=== PATIENT | female | born 1960 | race African-American/Black ===

== ENCOUNTER 2017-11-07 08:28 | Emergency (ER) | payer OTHER ==
[~2017-11-07] VITALS: Ht 162.6 cm; Wt 50.4 kg
[~2017-11-07 08:28] MED LIST: FLEXERIL10 MG PO; MOTRIN800 MG PO; NO HOME MEDS; PERCOCET 5/31 TABLET PO; PREDNISONE10 MG PO; PROTONIX40 MG PO; ULTRAM50 MG PO; VALIUM5 MG PO
[2017-11-07 09:19] LABS: HEMATOCRIT 38.9 % (36.0-46.0); HEMOGLOBIN 12.6 G/DL (11.9-15.5); MCH 29.3 PG (29.0-34.0); MCHC 32.4 G/DL (30.0-36.0); MCV 90.5 FL (83-99); PLATELET COUNT 219 K/uL (156-360); RBC DIS.WIDTH-CV 14.3 % (11.8-14.6); RBC DIS.WIDTH-SD 47.4 % (39-53); WHITE BLOOD COUNT 12.4 K/uL (4.1-10.2)
[2017-11-07 09:30] LABS: ALBUMIN 4.1 g/dL (3.2-4.8); CHLORIDE 109 mEq/L (99-109); POTASSIUM 3.8 mEq/L (3.7-5.4); SODIUM 140 mEq/L (136-147)
[2017-11-07 09:32] LABS: GLUCOSE 100 mg/dL (70-99); TOTAL PROTEIN 7.3 g/dL (6.4-8.3)
[2017-11-07 09:34] LABS: TOTAL BILIRUBIN 0.6 mg/dL (0.0-1.0)
[2017-11-07 09:36] LABS: ALKALINE PHOSPHATASE 82 IU/L (3-129); GFR ESTIMATE (CALCULATED) > 59 mL/min/
[2017-11-07 09:37] LABS: UREA NITROGEN (BUN) 16 mg/dL (9-23)
[2017-11-07 09:38] LABS: AST (GOT) 19 IU/L (2-34)
[2017-11-07 09:39] LABS: ALT (GPT) 15 IU/L (3-49); LIPASE 31 U/L (1.0-51.0)
[2017-11-07 10:56] LABS: APPEARANCE CLOUDY ((CLEAR)); BILIRUBIN NEGATIVE; BLOOD MODERATE; COLOR YELLOW ((YELLOW)); GLUCOSE (STRIP) NEGATIVE; KETONES NEGATIVE; LEUKOCYTES LARGE; NITRITE POSITIVE; PROTEIN (STRIP) 30; SPECIFIC GRAVITY 1.045 (1.000-1.030); UROBILINOGEN 0.2 MG/DL (0.2-1.0)
[2017-11-07 11:19] LABS: EPITHELIAL CELLS NONE SEEN /HPF; MUCUS NONE SEEN /LPF; WHITE BLOOD CELLS TNTC /HPF (0-5)
[2017-11-07 11:20] LABS: BACTERIA 3+ /HPF; UCUL ADDED? YES
[2017-11-07] MEDS ORDERED: KEFLEX500 MG PO (11:35)
[2017-11-07] MEDS ORDERED: PYRIDIUM200 MG PO (11:35)
[2017-11-07 11:58] VITALS: BP 129/84
== END 2017-11-07 11:58 | disposition home or self-care (01) ==
LOC: EME 08:28
PROVIDERS: Physician Assistant
DX: N39.0 Urinary tract infection, site not specified (principal); J44.9 Chronic obstructive pulmonary disease, unspecified; I25.2 Old myocardial infarction; F32.9 Major depressive disorder, single episode, unspecified; F17.200 Nicotine dependence, unspecified, uncomplicated; Z88.6 Allergy status to analgesic agent
CPT/HCPCS: 74177; 80053; 81003; 83690; 85027; 87077; 87086; 87186; 99281; 99284; J0696; J2405; J3010; J7030